=== PATIENT | female | born 1975 | race African-American/Black ===

== ENCOUNTER 2017-01-27 10:48 | Inpatient (IN) | payer BC ==
[~2017-01-27] VITALS: Ht 167.6 cm; Wt 104.8 kg
[2017-01-27] MEDS ORDERED: MORPHINE SULFATE 4 MG/ML CPJ (NOT FOR IM USE) IV STA (11:11)
[2017-01-27] MEDS ORDERED: ONDANSETRON HCL 4MG/2ML VIAL IV STA (11:11)
[2017-01-27] MEDS ORDERED: PANTOPRAZOLE SODIUM 40 MG/VIAL IV STA (11:11)
[2017-01-27] MEDS ORDERED: SODIUM CHLORIDE 0.9% 1,000 ML IV ONE (11:11)
[2017-01-27 11:38] LABS: BASOPHILS % 0.4 % (0.0-2.0); EOSINOPHILS % 0.3 % (0.0-5.0); HEMATOCRIT. 36.8 % (36.0-48.0); MEAN CORPUSCULAR HEMOGLOBIN 27.4 pg (28.0-32.0); MEAN PLATELET VOLUME 8.5 fl (7.4-10.4); MONOCYTES % 3.4 % (2.0-8.0); NEUTROPHILS % 86.9 % (40.0-76.0); PLATELET 400 x1000/uL (130-400); RED BLOOD CELL COUNT 4.38 mill/uL (4.2-5.4); RED CELL DISTRIBUTION WIDTH 19.1 % (11.6-14.6)
[2017-01-27 11:46] LABS: PROTHROMBIN TIME 10.6 sec (9.4-11.6)
[2017-01-27 11:57] LABS: CARBON DIOXIDE 22 mEq/L (21-32); CHLORIDE 108 mEq/L (98-107); ETHANOL BLOOD < 10 mg/dL; TROPONIN I < 0.02 ng/mL (0.00-0.04)
[2017-01-27] MEDS ORDERED: ACETAMINOPHEN 325MG TABLET PO PRN (14:00)
[2017-01-27] MEDS ORDERED: MORPHINE SULFATE 2 MG/ML CPJ (NOT FOR IM USE) IV PRN (14:00)
[2017-01-27] MEDS ORDERED: DIPHENHYDRAMINE 50MG/ML VIAL IV PRN (14:00)
[2017-01-27] MEDS ORDERED: ONDANSETRON HCL 4MG/2ML VIAL IV PRN (14:00)
[2017-01-27] MEDS ORDERED: CLONIDINE 0.1MG TABLET PO PRN (14:00)
[2017-01-27] MEDS ORDERED: IPRATROPIUM/ALBUTEROL 0.5-3(2.5)MG/3ML NEB INH PRN (14:00)
[2017-01-27] MEDS ORDERED: HYDROCODONE/ACETAMINOPHEN 5/325MG TABLET PO PRN (14:00)
[2017-01-27] MEDS: MORPHINE SULFATE 4 MG/ML CPJ (NOT FOR IM USE) IV PRN ×2 (17:50→22:41)
[2017-01-27] MEDS ORDERED: ENOXAPARIN 40MG/0.4ML SYR SUBCUT SCH (18:00)
[2017-01-27 18:13] LABS: GLUCOSE URINE NEGATIVE (NEGATIVE); KETONES URINE 3+ (NEGATIVE); LEUKOCYTE ESTERASE URINE NEGATIVE (NEGATIVE); NITRITE URINE NEGATIVE (NEGATIVE); OCCULT BLOOD URINE 3+ (NEGATIVE); PH URINE 5.5 (4.5-8.0); PROTEIN URINE 2+ (NEGATIVE); SPECIFIC GRAVITY URINE >1.040 (1.005-1.030); UROBILINOGEN URINE 0.2 E.U./dL (0.2-1.0)
[2017-01-27 18:15] LABS: *AMPHETAMINES SCREEN URINE NEGATIVE (NEGATIVE); *BARBITURATES SCREEN URINE NEGATIVE (NEGATIVE); *BENZODIAZEPINES SCREEN URINE NEGATIVE (NEGATIVE); *COCAINE SCREEN URINE NEGATIVE (NEGATIVE); METHADONE URINE SCREEN NEGATIVE (NEGATIVE); PHENCYCLIDINE URINE SCREEN NEGATIVE (NEGATIVE)
[2017-01-27 18:16] LABS: CANNABINOID URINE SCREEN PRESUMTIVE POSITIVE (NEGATIVE); OPIATES URINE SCREEN PRESUMTIVE POSITIVE (NEGATIVE)
[2017-01-27 18:17] LABS: CLARITY URINE SL HAZY (CLEAR); COLOR URINE YELLOW (YELLOW)
[2017-01-27 21:30] VITALS: BP 122/64
[2017-01-28] VITALS: BP 124/70
[2017-01-28 04:00] VITALS: BP 104/47
== END 2017-01-28 06:40 | disposition left against medical advice (07) | DRG 206 ==
LOC: ER 11:15 → 7WST 13:50 → EDBEDREQ 13:50 → EDBEDREQTM 13:50 → ENRESERV 19:04 → EDBEDREQ 21:28
PROVIDERS: ADMIT Internal Medicine; ATTEND Internal Medicine
DX: M94.0 Chondrocostal junction syndrome [Tietze] (principal); E87.2 Acidosis; E07.81 Sick-euthyroid syndrome; D72.829 Elevated white blood cell count, unspecified; Z53.21 Procedure and treatment not carried out due to patient leaving prior to being seen by health care provider; Z72.0 Tobacco use
CPT/HCPCS: 36415; 71010; 74177; 76705; 78582; 80053; 80305; 81001; 81025; 83036; 83605; 83690; 83880; 84443; 84484; 85025; 85610; 87040; 87077; 87086; 93005; 93970; 96361; 96374; 96375; 96376; 99285; A9558; C9113; G0482; J2270; J2405; J7030